=== PATIENT | male | born 1975 | race African-American/Black ===

== ENCOUNTER 2017-07-05 23:57 | Emergency (ER) | payer MEDICAID ==
[~2017-07-05] VITALS: Ht 175.3 cm; Wt 60.0 kg
[~2017-07-05 23:57] MED LIST: AMLO10TA80 PO; KEPP500 PO; LISI-604 PO; PHEN100C4 PO
[2017-07-06] MEDS ORDERED: ONDANSETRON HCL 4MG/2ML VIAL IV STA (00:17)
[2017-07-06] MEDS ORDERED: CLONIDINE 0.1MG TABLET PO ONE (02:00)
[2017-07-06 03:59] LABS: BASOPHILS % 0.7 % (0.0-2.0); EOSINOPHILS % 0.5 % (0.0-5.0); HEMATOCRIT. 38.5 % (42.0-52.0); HEMOGLOBIN. 12.7 g/dL (14.0-18.0); LYMPHOCYTES % 14.5 % (20.0-50.0); MEAN CORPUSCULAR HEMOGLOBIN 33.2 pg (28.0-32.0); MEAN CORPUSCULAR VOLUME 100.6 fL (80.0-94.0); MEAN PLATELET VOLUME 8.7 fl (7.4-10.4); MONOCYTES % 9.7 % (2.0-8.0); NEUTROPHILS % 74.6 % (40.0-76.0); PLATELET 110 x1000/uL (130-400); RED BLOOD CELL COUNT 3.83 mill/uL (4.7-6.1); RED CELL DISTRIBUTION WIDTH 16.9 % (11.6-14.6)
[2017-07-06 04:01] LABS: CARBON DIOXIDE 26 mEq/L (21-32); CHLORIDE 98 mEq/L (98-107)
[2017-07-06 05:31] VITALS: BP 175/84
== END 2017-07-06 07:45 | disposition home or self-care (01) ==
LOC: ER 07-06 00:22
DX: R56.9 Unspecified convulsions (principal); N18.6 End stage renal disease; I12.0 Hypertensive chronic kidney disease with stage 5 chronic kidney disease or end stage renal disease
CPT/HCPCS: 36415; 80053; 80185; 85025; 96374; 99284; J2405